=== PATIENT | male | born 1980 | race Caucasian/White ===

== ENCOUNTER 2018-05-29 16:10 | Emergency (ER) | payer OTHER ==
[~2018-05-29] VITALS: Ht 188 cm; Wt 72.3 kg
[~2018-05-29 16:10] MED LIST: PERCOCET 5/31 TABLET PO
[2018-05-29] MEDS ORDERED: PREDNISONE10 M1 PO (17:27)
[2018-05-29] MEDS ORDERED: NORCO 5/3251 TABLET PO (17:27)
[2018-05-29] MEDS ORDERED: SKELAXIN800 MG PO (17:27)
[2018-05-29 17:40] VITALS: BP 134/98
== END 2018-05-29 17:41 | disposition home or self-care (01) ==
LOC: RME 16:10 → EME 16:10 → RME 17:41
DX: M54.42 Lumbago with sciatica, left side (principal)
CPT/HCPCS: 99281; 99283

== ENCOUNTER 2018-06-23 16:05 | Emergency (ER) | payer OTHER ==
[~2018-06-23] VITALS: Ht 188 cm; Wt 75.1 kg
[~2018-06-23 16:05] MED LIST changes: +NORCO 5/3251 TABLET PO; +PREDNISONE10 M1 PO; +SKELAXIN800 MG PO
[2018-06-23] MEDS ORDERED: NORCO 10/3251 TABLET PO (18:50)
[2018-06-23] MEDS ORDERED: MOTRIN800 MG PO (18:50)
[2018-06-23] MEDS ORDERED: VALIUM5 MG PO (18:50)
[2018-06-23 19:00] VITALS: BP 157/79
== END 2018-06-23 19:01 | disposition home or self-care (01) ==
LOC: EME 16:05
DX: M54.42 Lumbago with sciatica, left side (principal); G89.29 Other chronic pain; Z87.891 Personal history of nicotine dependence
CPT/HCPCS: 99281; 99284; J3010

== ENCOUNTER 2018-06-29 11:35 | Emergency (ER) | payer OTHER ==
[~2018-06-29] VITALS: Ht 188 cm; Wt 73.9 kg
[~2018-06-29 11:35] MED LIST changes: +MOTRIN800 MG PO; +NORCO 10/3251 TABLET PO; +VALIUM5 MG PO
[2018-06-29] MEDS ORDERED: LIDODERM 5% P1 PATCH TD (13:18)
[2018-06-29] MEDS ORDERED: VALIUM5 MG PO (13:18)
[2018-06-29] MEDS ORDERED: MOTRIN800 MG PO (13:18)
[2018-06-29 13:50] VITALS: BP 158/85
== END 2018-06-29 13:50 | disposition home or self-care (01) ==
LOC: RME 11:35 → EME 11:35 → RME 13:50
DX: S39.012A Strain of muscle, fascia and tendon of lower back, initial encounter (principal); M54.42 Lumbago with sciatica, left side; G89.29 Other chronic pain; M19.90 Unspecified osteoarthritis, unspecified site; F17.200 Nicotine dependence, unspecified, uncomplicated
CPT/HCPCS: 99281; 99284; J3010

== ENCOUNTER 2018-07-05 14:28 | Emergency (ER) | payer OTHER ==
[~2018-07-05] VITALS: Ht 188 cm; Wt 72.4 kg
[~2018-07-05 14:28] MED LIST changes: +LIDODERM 5% P1 PATCH TD
[2018-07-05] MEDS ORDERED: VALIUM5 MG PO (15:41)
[2018-07-05] MEDS ORDERED: TRAMADOL HCL50 MG PO (15:41)
[2018-07-05 15:50] VITALS: BP 122/74
== END 2018-07-05 15:51 | disposition home or self-care (01) ==
LOC: EME 14:28
DX: M54.12 Radiculopathy, cervical region (principal); M54.16 Radiculopathy, lumbar region; M41.9 Scoliosis, unspecified; F17.200 Nicotine dependence, unspecified, uncomplicated
CPT/HCPCS: 99281; 99283